=== PATIENT | female | born 1985 | race Caucasian/White ===

== ENCOUNTER 2024-05-23 10:11 | Observation (INO) ==
[2024-05-23] MEDS ORDERED: ONDANSETRON HCL/PF 4 MG/2 ML VIAL ONE (10:24)
[2024-05-23] MEDS ORDERED: KETOROLAC 30 MG/ML INJ VIAL ONE (10:24)
--- NOTE | 2024-05-23 10:25 | Emergency Department Note ---
HPI - General Adult General Chief complaint: Back Pain/Injury Stated complaint: KIDNEY STONES Time Seen by Provider: 05/23/24 10:22 Source: patient Source information: patient Mode of arrival: walk-in Limitations: no limitations History of Present Illness HPI narrative: This is a 38 year old female patient that presents to the Er with c/o left flank pain with N/V since this morning. Patient states she has a hx of kidney stones. Patient denies any chest pain, SOB, abdominal pain, fever, chills or diarrhea. Patient denies any painful urination or blood in urine Onset (ago): hour(s) (2) Location: Reports back (left flank) Radiation: Reports non-radiation Pain Consistency: Reports constant Relieving factors: Reports none Exacerbating factors: Reports none Associated symptoms: Reports denies other symptoms Treatments prior to arrival: Reports none Related Data Allergies Allergy/AdvReac Type Severity Reaction Status Date / Time azithromycin (From Zithromax) Allergy Verified 05/23/24 10:18 moxifloxacin (From Avelox) Allergy Verified 05/23/24 10:18 Review of Systems Status of ROS 10 or more systems reviewed and unremark able except as noted in history and below Constitutional Denies: fever, chills, change in weight, fatigue, malaise or night sweats Eyes Denies: change in vision, blurry vision, blind spots, light sensitivity, eye discomfort or eye discharge Ears, nose, mouth, and throat Denies: throat pain, neck pain, throat swelling, difficulty swallowing, hoarseness or mouth pain Cardiovascular Denies: chest pain, palpitations, edema, swelling of feet/ankles, lightheadedness or shortness of breath with exertion Respiratory Denies: shortness of breath, cough, wheezing, stridor or pain on i nspiration Gastrointestinal Reports: nausea and vomiting; Denies: abdominal pain, coffee grounds in vomit, heartburn, diarrhea or constipation Genitourinary Denies: painful urination, urinary frequency, urinary urgency, urinary incontinence, blood in urine or difficulty voiding Musculoskeletal Reports: back pain (left flank); Denies: neck pain, extremity pain, extremity swelling, joint pain, limited range of motion or joint swelling Integumentary/Breast Denies: rash, itching, redness, skin pain, skin tenderness, skin swelling, sores or new lesion Neurological Denies: headache, numbness in extremities, weakness in extremities, lack of coordination or dizziness Psychiatric Denies: anxiety, mood swings, panic attacks, change in sleep pattern, hopelessness, loss of interest or irritability Endocrine Denies: excessive urination, excessive thirst, fatigue, cold intolerance, excessive sweating, flushing or heat intolerance Hematologic/Lymphatic Denies: easy bruising, easy bleeding or enlarged lymph nodes Allergic/Immunologic Denies: hives, throat swelling, tongue swelling or facial swelling PFSH PFSH Medical History (Updated 05/23/24 @ 10:21 by Annemarie Aquino, RN) GERD (gastroesophageal reflux disease) Hypertension Surgical History (Updated 05/23/24 @ 10:21 by Annemarie Aquino, RN) History of tonsillectomy Exam Constitutional: normal general appearance and no apparent distress Vital Signs - 24 hr 05/23/24 10:15 Temperature 97.8 F Pulse Rate 94 H Respiratory Rate 18 Blood Pressure 133/75 Pulse Oximetry 100 Oxygen Delivery Me thod Room Air HENMT: normocephalic, head/scalp atraumatic and hearing grossly normal bilaterally Eyes: PERRL, EOMs intact bilaterally, conjunctivae normal and no scleral icterus Neck/C-Spine: visual inspection normal and trachea midline Lymph: no lymphadenopathy noted Chest: inspection of chest normal Respiratory: breath sounds equal bilaterally, normal respiratory effort, clear to auscultation bilaterally, no wheezes, no rales, no retractions and no use of accessory muscles Cardiovascular: normal heart rate noted, regular rhythm noted, no gallop, no rub, no murmur, no JVD, no clicks, peripheral pulses 2+ throughout and no additional abnormal heart sounds Gastrointestinal: abdomen normal to inspection, abdomen soft to palpation, nontender to palpation, nontender to percussion, nondistended, normoactive bowel sounds, no hepatosplenomegaly, no masses, no pulsatile mass, no ascites and no hernia Genitourinary: CVA tenderness noted (left CVA tenderness) Back/Pelvis: spine normal to inspection Extremities: normal to inspection, normal to palpation, no tenderness, full ROM, no joint enlargement and no deformity Neurology: no movement abnormality noted, gait normal, no fasciculations noted and GCS normal Psychiatry: mental status grossly normal, oriented x3, thought process normal, cooperative, affect normal, psychomotor activity normal and memory normal Skin: skin color normal Course Course Hospital Course: 1131: spoke to Dr Rangel (urology) reviewed labs and imaging with him and he stated he will see patient in his office Sunday morning and if she needs to be admitted here for pain control he can be consulted on her if the hospitalist needed him. No s/s of acute distress noted 1211: patient states her pain is coming back, will admit patient to the hospital for pain control and hydration. VSS. No s/s of acute distress noted Vital Signs Vital signs: Vital Signs Temperature 97.8 F 05/23/24 10:15 Pulse Rate 94 H 05/23/24 10:15 Respiratory Rate 18 05/23/24 10:15 Blood Pressure 133/75 05/23/24 10:15 Pulse Oximetry 100 05/23/24 10:15 Oxygen Delivery Method Room Air 05/23/24 10:15 Temperature 97.8 F 05/23/24 10:15 Pulse Rate 94 H 05/23/24 10:15 Respiratory Rate 18 05/23/24 10:15 Blood Pressure 133/75 05/23/24 10:15 Pulse Oximetry 100 05/23/24 10:15 Oxygen Delivery Method Room Air 05/23/24 10:15 Medical Decision Making Differential Diagnosis Differential Diagnosis: muscle strain Medical Records Medical records reviewed: Yes I reviewed the patient's medical records Lab Data Lab results reviewed: Yes I reviewed the patient's lab results Labs: Lab Results 05/23/24 05/23/24 Range/Units 09:23 10:30 WBC 7.4 (4.3-9.3) K/uL RBC 4.4 (4.00-5.50) M/uL Hgb 12.5 (12.5-15.8) gm/dL Hct 37.3 (35.9-46.7) % MCV 84.8 (81.0-93.7) fl MCH 28.3 (27.6-32.2) pg MCHC 33.4 (33.1-35.3) g/dl RDW 13.9 (11.4-14.2) % Plt Count 358 H (152-353) K/uL MPV 6.6 L (6.9-10.8) fl Gran % 55.7 (47.8-71.3) % Lymph % (Auto) 36.7 (20.0-43.0) % [place] % (Auto) 5.6 (3.6-9.8) % Eos % (Auto) 1.6 (0.4-2.8) % Baso % (Auto) 0.4 (0.1-0.85) Lymph # (Auto) 2.7 (1.1-3.1) [place] # (Auto) 0.4 L (1.1-3.1) Eos # (Auto) 0.1 (0.0-0.2) Baso # (Auto) 0.0 (0.0-0.1) Absolute Gran (auto) 4.1 (2.3-6.0) Sodium 139 (136-145) mmol/L Potassium 3.7 (3.6-5.2) mmol/L Chloride 103.0 (98-107) mmol/L Carbon Dioxide 25 (21-32) mmol/L Anion Gap 11.0 (4-14) mEq/L BUN 12 (7-18) mg/dL Creatinine 0.7 (0.6-1.3) mg/dL Estimated GFR 112.1 (>59.9) Glucose 131 H (70-110) mg/dL Calcium 9.3 (8.5-10.1) mg/dL Total Bilirubin 0.38 (0.0-1.0) mg/dL AST 17 (15-37) U/L ALT 34 (30-65) U/L Alkaline Phosphatase 118 (50-136) U/L Total Protein 7.7 (6.4-8.2) g/dL Albumin 3.8 (3.4-5.0) g/dL Urine Color Yellow (STRAW/YELL.) Urine Appearance Clear (CLEAR) Ur Specific [place] 1.030 (1.001-1.035) Urine Protein Negative (NEGATIVE) Urine Glucose (UA) Normal (NORMAL) Urine Ketones Negative (NEGATIVE) Urine Occult Blood 3+ (NEG - TRACE) Urine Nitrite Negative (NEGATIVE) Urine Bilirubin Negative (NEGATIVE) Urine Urobilinogen Normal (NORMAL) Ur Leukocyte Esterase Negative (NEGATIVE) Urine RBC 10 - 25 (0 - 5) Urine WBC Negative ( 0 - 5) Ur Epithelial Cells Few (Few/HPF) Amorphous Sediment Negative (Negative) Urine Bacteria Few (Negative) Urine Mucus Negative (Negative) Urine Trichomonas Negative (Negative) Urine Yeast Negative (Negative) Urine Test Negative (Negative) Fluid pH 6.0 (5 - 9) Imaging Data CT scan - abdomen: Attestation: I have reviewed the pertinent imaging results. Discharge Plan Discharge Patient Disposition: Admitted As Observation Condition: Stable Clinical Impression: Kidney stone, Acute flank pain, Nausea & vomiting Time of Disposition: 12:11
[2024-05-23] MEDS: ONDANSETRON HCL/PF 4 MG/2 ML VIAL INJ STA ×2 (10:30→11:28)
[2024-05-23] MEDS: KETOROLAC 30 MG/ML INJ VIAL IVP ONE (10:30)
[2024-05-23 10:37] LABS: Basophils%(Percent) Auto 0.4 (0.1-0.85); Eosinophils#(Absolute)Auto 0.1 (0.0-0.2); Eosinophils%(Percent) Auto 1.6 % (0.4-2.8); Granulocytes % - Auto 55.7 % (47.8-71.3); Granulocytes#(Absolute)- Auto 4.1 (2.3-6.0); Hematocrit 37.3 % (35.9-46.7); Mean Corpuscular Volume 84.8 fl (81.0-93.7); Monocytes #(Absolute)- Auto 0.4 (1.1-3.1); Monocytes %(Percent)- Auto 5.6 % (3.6-9.8); Platelet Count 358 K/uL (152-353); White Blood Count 7.4 K/uL (4.3-9.3)
[2024-05-23 10:47] LABS: Potassium 3.7 mmol/L (3.6-5.2)
[2024-05-23 11:02] LABS: Urine Appearance CLEAR (CLEAR); Urine Color YELLOW (STRAW/YELL.)
[2024-05-23 11:03] LABS: Urine Blood 3+ (NEG - TRACE); Urine Urobilinogen Normal (NORMAL)
[2024-05-23 11:07] LABS: Urine Amorphous Sediment Negative (Negative); Urine Yeast Negative (Negative)
[2024-05-23] MEDS: TAMSULOSIN HCL 0.4 MG CAPSULE PO ONE (11:27)
[2024-05-23] MEDS: MORPHINE SULFATE 4 MG/ML CARTRIDGE IVP ONE (11:29)
[2024-05-23] MEDS ORDERED: bisacodyL 10 MG SUPP.RECT PR PRN (15:00)
[2024-05-23] MEDS ORDERED: ACETAMINOPHEN 500 MG TABLET PO PRN (15:00)
[2024-05-23] MEDS ORDERED: ONDANSETRON HCL/PF 4 MG/2 ML VIAL INJ PRN (15:00)
[2024-05-23] MEDS: 0.9 % SODIUM CHLORIDE 1000 ML 1,000 ML IV SCH (15:27)
[2024-05-23] MEDS: KETOROLAC 30 MG/ML INJ VIAL IVP PRN (15:28)
[2024-05-23] MEDS: ONDANSETRON HCL/PF 4 MG/2 ML VIAL INJ PRN (16:01)
[2024-05-23] MEDS: MORPHINE SULFATE 4 MG/ML CARTRIDGE IV PRN (17:11)
[2024-05-23] MEDS: METOCLOPRAMIDE HCL 10 MG in 0.9 % SODIUM CHLORIDE 50 ML IVP PRN (17:11)
[2024-05-24 04:01] VITALS: RESP 18
[2024-05-24 05:35] LABS: Basophils%(Percent) Auto 0.2 (0.1-0.85); Eosinophils%(Percent) Auto 0.6 % (0.4-2.8); Granulocytes % - Auto 68.2 % (47.8-71.3); Granulocytes#(Absolute)- Auto 6.1 (2.3-6.0); Hematocrit 32.8 % (35.9-46.7); Mean Corpuscular Volume 84.7 fl (81.0-93.7); Monocytes #(Absolute)- Auto 0.7 (1.1-3.1); Monocytes %(Percent)- Auto 7.5 % (3.6-9.8); Platelet Count 273 K/uL (152-353); White Blood Count 8.9 K/uL (4.3-9.3)
[2024-05-24 06:03] LABS: Potassium 3.8 mmol/L (3.6-5.2)
[2024-05-24 09:11] VITALS: BP 114/65; PULSE 78; TEMP 97.6
--- NOTE | 2024-05-24 09:38 | Short Stay Summary ---
H&P: HPI History of Present Illness Chief complaint: KIDNEY STONE, FLANK PAIN, N/V Narrative: This is a 38-year-old white female patient who presented to the ER on 05/23/2024 (yesterday) for complaints of sudden onset left flank pain with nausea and vomiting. Reports known history of kidney stones and believed that to be the cause of her sudden onset of pain. She was evaluated in the ER and found to have a 6 mm stone left kidney with hydroureteronephrosis. Dr. Gorman (Urologist) was consulted and stated he would see patient in office on Sunday morning, however, if needed for pain control she could be admitted and he could be consulted by Hospitalist for any additional needs during hospital stay. She was admitted to the med-surg floor for IV hydration, antiemetics, and pain control. Her hospital stay has remained uneventful. Her pain has improved, her nausea and vomiting has resolved and she is tolerating meals now. She denies any pain currently and requesting discharge home. She does not wish to see Dr. Gorman and instead would like to be referred to another urologist. Will contact Dr. Recinos on Sunday and plan for close outpatient follow-up. Review of Systems Status of ROS 10 or more systems reviewed and unremark able except as noted in history and below Constitutional Denies: fever, chills, change in weight, fatigue, malaise or night sweats Eyes Denies: change in vision, blurry vision, blind spots, light sensitivity, eye discomfort or eye discharge Ears, nose, mouth, and throat Denies: throat pain, neck pain, throat swelling, difficulty swallowing, hoarseness or mouth pain Cardiovascular Denies: chest pain, palpitations, edema, swelling of feet/ankles, lightheadedness or shortness of breath with exertion Respiratory Denies: shortness of breath, cough, wheezing, stridor or pain on inspiration Gastrointestinal Denies: abdominal pain, nausea, vomiting, coffee grounds in vomit, heartburn, diarrhea, constipation or difficulty swallowing Genitourinary Denies: painful urination, urinary frequency, urinary urgency, urinary incontinence, blood in urine or difficulty voiding Musculoskeletal Denies: back pain (left flank), neck pain, extremity pain, extremity swelling, joint pain, limited range of motion or joint swelling Integumentary/Breast Denies: rash, itching, redness, skin pain, skin tenderness, skin swelling, sores or new lesion Neurological Denies: headache, numbness in extremities, weakness in extremities, lack of coordination or dizziness Psychiatric Denies: anxiety, mood swings, panic attacks, change in sleep pattern, hopelessness, loss of interest or irritability Endocrine Denies: excessive urination, excessive thirst, fatigue, cold intolerance, excessive sweating, flushing or heat intolerance Hematologic/Lymphatic Denies: easy bruising, easy bleeding or enlarged lymph nodes Allergic/Immunologic Denies: hives, throat swelling, tongue swelling, facial swelling or wheezing PFSH [facility] Medical History (Updated 05/24/24 @ 10:27 by Debora Romero NP) GERD (gastroesophageal reflux disease) Hypertension Surgical History History of tonsillectomy Social History Problems where you live: no known problems Highest level of school completed/degree received: [employer] Meds Home Medications and Allergies Home Medications Medication Instructions Recorded Confirmed Type lisinopril 20 mg tablet 20 mg PO DAILY 05/23/24 05/23/24 History omeprazole magnesium PO DAILY 05/23/24 History ketorolac 10 mg tablet 10 mg PO Q8H PRN pain #20 tabs 05/24/24 Rx ondansetron 4 mg disintegrating 4 mg PO Q8H PRN nausea and 05/24/24 Rx tablet vomiting #20 tabs tamsulosin 0.4 mg capsule (Flomax) 0.4 mg PO DAILY kidney stone #30 05/24/24 Rx caps tramadol 50 mg tablet 50 mg PO BID PRN pain #20 tabs 05/24/24 Rx Allergies Allergy/AdvReac Type Severity Reaction Status Date / Time azithromycin (From Zithromax) Allergy Verified 05/23/24 10:18 moxifloxacin (From Avelox) Allergy Verified 05/23/24 10:18 Exam Constitutional: normal general appearance, no apparent distress, average body habitus, no limitations and alert Vital Signs - 24 hr 05/23/24 10:15 05/23/24 11:30 05/23/24 12:00 Temperature 97.8 F Pulse Rate 94 H 80 86 Pulse Rate [Left] Respiratory Rate 18 18 18 Blood Pressure 133/75 127/82 122/76 Blood Pressure [Ri ght Arm] Pulse Oximetry 100 100 99 Oxygen Delivery Me thod Room Air Room Air Room Air 05/23/24 12:30 05/23/24 13:00 05/23/24 13:08 Temperature Pulse Rate 96 H 90 Pulse Rate [Left] Respiratory Rate 18 18 16 Blood Pressure 125/78 120/75 Blood Pressure [Ri ght Arm] Pulse Oximetry 98 99 Oxygen Delivery Me thod Room Air Room Air 05/23/24 13:15 05/23/24 13:48 05/23/24 23:41 Temperature 97.8 F 98.5 F 97.8 F Pulse Rate 90 Pulse Rate [Left] 92 H Respiratory Rate 18 19 17 Blood Pressure 120/75 Blood Pressure [Ri ght Arm] 119/66 Pulse Oximetry 99 98 Oxygen Delivery Me thod Room Air 05/24/24 04:00 Temperature 98.0 F Pulse Rate Pulse Rate [Left] 87 Respiratory Rate 18 Blood Pressure Blood Pressure [Ri ght Arm] 114/72 Pulse Oximetry 98 Oxygen Delivery Me thod Room Air HENMT: normocephalic, head/scalp atraumatic and hearing grossly normal bilaterally Eyes: PERRL, EOMs intact bilaterally, conjunctivae normal and no scleral icterus Neck/C-Spine: visual inspection normal, trachea midline, cervical full ROM noted and supple Lymph: no lymphadenopathy noted Chest: inspection of chest normal Respiratory: breath sounds equal bilaterally, normal respiratory effort, clear to auscultation bilaterally, no wheezes, no rales, no retractions and no use of accessory muscles Cardiovascular: normal heart rate noted, regular rhythm noted, no gallop, no rub, no murmur, no JVD, no clicks, peripheral pulses 2+ throughout and no addit ional abnormal heart sounds Gastrointestinal: abdomen normal to inspection, abdomen soft to palpation, nontender to palpation, nontender to percussion, nondistended, normoactive bowel sounds, no masses, no pulsatile mass and no ascites Genitourinary: no CVA tenderness (left CVA tenderness) and bladder normal to palpation Back/Pelvis: spine normal to inspection, no thoracic spine tenderness and no lumbar spine tenderness Extremities: normal to inspection, normal to palpation, no tenderness, full ROM, no joint enlargement and no deformity Neurology: no movement abnormality noted, gait normal, no fasciculations noted and GCS normal Psychiatry: mental status grossly normal, oriented x3, thought process normal, cooperative, affect normal, psychomotor activity normal and memory normal Skin: skin color normal, no rash, no wounds, skin turgor normal and no jaundice Assessment and Plan Assessment and Plan (1) Hydroureteronephrosis: Assessment and Plan: 6 mm obstructing calculus in the proximal left ureter with mild upstream hydroureteronephrosis IV hydration with normal saline at 100 cc an hour Flomax 0.4 mg daily Pain control with Toradol 30 mg IV every 6 hours as needed Morphine 4 mg IV every 6 hours as needed Encouraged oral fluid intake Urologist consult for close follow-up at discharge patient requesting Dr. Recinos in [place] Patient will be discharged home to continue with Flomax daily Discharge pain medication tramadol 50 mg p.o. 2 times daily as needed for pain and Toradol 10 mg p.o. 3 times daily as needed for pain. Reviewed red flag symptoms that should prompt immediate return or call for re-evaluation- worsening symptoms- fever, intractable nausea vomiting, Inability to void, worsening or change in pain Code(s): N13.30 - Unspecified hydronephrosis (2) Kidney stone on left side: Assessment and Plan: 6 mm obstructing calculus in the proximal left ureter with mild upstream hydroureteronephrosis IV hydration with normal saline at 100 cc an hour Flomax 0.4 mg daily Pain control with Toradol 30 mg IV every 6 hours as needed Morphine 4 mg IV every 6 hours as needed Encouraged oral fluid intake Urologist consult for close follow-up at discharge patient requesting Dr. Recinos in [place] Patient will be discharged home to continue with Flomax daily Discharge pain medication tramadol 50 mg p.o. 2 times daily as needed for pain and Toradol 10 mg p.o. 3 times daily as needed for pain. Reviewed red flag symptoms that should prompt immediate return or call for re-evaluation- worsening symptoms-fever, intractable nausea vomiting, Inability to void, worsening or change in pain Code(s): N20.0 - Calculus of kidney (3) Hydronephrosis with obstructing calculus: Assessment and Plan: 6 mm obstructing calculus in the proximal left ureter with mild upstream hydroureteronephrosis IV hydration with normal saline at 100 cc an hour Flomax 0.4 mg daily Pain control with Toradol 30 mg IV every 6 hours as needed Morphine 4 mg IV every 6 hours as needed Encouraged oral fluid intake Urologist consult for close follow-up at discharge patient requesting Dr. Recinos in [place] Patient will be discharged home to continue with Flomax daily Discharge pain medication tramadol 50 mg p.o. 2 times daily as needed for pain and Toradol 10 mg p.o. 3 times daily as needed for pain. Reviewed red flag symptoms that should prompt immediate return or call for re-evaluation- worsening symptoms-fever, intractable nausea vomiting, Inability to void, worsening or change in pain Code(s): N13.2 - Hydronephrosis with renal and ureteral calculous obstruction (4) Acute left flank pain: Assessment and Plan: 6 mm obstructing calculus in the proximal left ureter with mild upstream hydroureteronephrosis IV hydration with normal saline at 100 cc an hour Flomax 0.4 mg daily Pain control with Toradol 30 mg IV every 6 hours as needed Morphine 4 mg IV every 6 hours as needed Encouraged oral fluid intake Pain has resolved at time of discharge. Urologist consult for close follow-up at discharge patient requesting Dr. Recinos in [place] Patient will be discharged home to continue with Flomax daily Discharge pain medication tramadol 50 mg p.o. 2 times daily as needed for pain and Toradol 10 mg p.o. 3 times daily as needed for pain. Reviewed red flag symptoms that should prompt immediate return or call for re-evaluation- worsening symptoms- fever, intractable nausea vomiting, Inability to void, worsening or change in pain Code(s): R10.9 - Unspecified abdominal pain (5) Hypertension: Assessment and Plan: Vital signs per protocol Continue home medication lisinopril 20 mg p.o. daily Qualifiers: Hypertension type: unspecified Qualified Code(s): I10 - Essential (primary) hypertension Code(s): I10 - Essential (primary) hypertension (6) GERD (gastroesophageal reflux disease): Assessment and Plan: Continue home medication of omeprazole daily Managed well with current regiment. Continue to monitor diet. Qualifiers: Esophagitis presence: without esophagitis Qualified Code(s): K21.9 - Gastro-esophageal reflux disease without esophagitis Code(s): K21.9 - Gastro-esophageal reflux disease without esophagitis (7) Nausea & vomiting: Assessment and Plan: IV hydration with normal saline at 100 cc an mabel Zofran 4 mg IV every 4 as needed nausea/ vomiting Metoclopramide 10 mg IV every 8 hours as needed for nausea/ vomiting Resolved at time of discharge Patient is tolerating food and fluids without nausea and vomiting. Patient will be discharged home with Zofran 4 mg every 6-8 hours as needed for nausea. Code(s): R11.2 - Nausea with vomiting, unspecified Plan Patient will be discharged home with close follow-up with urologist hopefully the beginning of next week. Will contact Dr. Recinos's office on Sunday. She will be discharged home with pain medication as well as medications for nausea to take as directed and as needed to manage symptoms. We did review with her to return immediately to the nearest ER or here for any new/worsening/worrisome symptoms i.e. fever, intractable nausea vomiting, Inability to void, worsening or change in pain. Results Labs Labs: CBC WBC 8.9 K/uL (4.3-9.3) 05/24/24 05:25 RBC 3.9 M/uL (4.00-5.50) L 05/24/24 05:25 Hgb 11.2 gm/dL (12.5-15.8) L 05/24/24 05:25 Hct 32.8 % (35.9-46.7) L 05/24/24 05:25 MCV 84.7 fl (81.0-93.7) 05/24/24 05:25 MCH 28.8 pg (27.6-32.2) 05/24/24 05:25 MCHC 34.1 g/dl (33.1-35.3) 05/24/24 05:25 RDW 13.9 % (11.4-14.2) 05/24/24 05:25 Plt Count 273 K/uL (152-353) 05/24/24 05:25 MPV 6.6 fl (6.9-10.8) L 05/24/24 05:25 Gran % 68.2 % (47.8-71.3) 05/24/24 05:25 Lymph % (Auto) 23.5 % (20.0-43.0) 05/24/24 05:25 [place] % (Auto) 7.5 % (3.6-9.8) 05/24/24 05:25 Eos % (Auto) 0.6 % (0.4-2.8) 05/24/24 05:25 Baso % (Auto) 0.2 (0.1-0.85) 05/24/24 05:25 Lymph # (Auto) 2.1 (1.1-3.1) 05/24/24 05:25 [place] # (Auto) 0.7 (1.1-3.1) L 05/24/24 05:25 Eos # (Auto) 0.0 (0.0-0.2) 05/24/24 05:25 Baso # (Auto) 0.0 (0.0-0.1) 05/24/24 05:25 Absolute Gran (auto) 6.1 (2.3-6.0) H 05/24/24 05:25 BMP Sodium 141 mmol/L (136-145) 05/24/24 05:25 Potassium 3.8 mmol/L (3.6-5.2) 05/24/24 05:25 Chloride 107.0 mmol/L (98-107) 05/24/24 05:25 Carbon Dioxide 28 mmol/L (21-32) 05/24/24 05:25 Anion Gap 6.0 mEq/L (4-14) 05/24/24 05:25 BUN 15 mg/dL (7-18) 05/24/24 05:25 Creatinine 0.6 mg/dL (0.6-1.3) 05/24/24 05:25 Estimated GFR 116.3 (>59.9) 05/24/24 05:25 Glucose 105 mg/dL (70-110) 05/24/24 05:25 Calcium 8.6 mg/dL (8.5-10.1) 05/24/24 05:25 Total Bilirubin 0.52 mg/dL (0.0-1.0) 05/24/24 05:25 AST 13 U/L (15-37) L 05/24/24 05:25 ALT 26 U/L (30-65) L 05/24/24 05:25 Alkaline Phosphatase 99 U/L (50-136) 05/24/24 05:25 Total Protein 6.5 g/dL (6.4-8.2) 05/24/24 05:25 Albumin 3.2 g/dL (3.4-5.0) L 05/24/24 05:25 Liver Function Total Bilirubin 0.52 mg/dL (0.0-1.0) 05/24/24 05:25 AST 13 U/L (15-37) L 05/24/24 05:25 ALT 26 U/L (30-65) L 05/24/24 05:25 Alkaline Phosphatase 99 U/L (50-136) 05/24/24 05:25 Total Protein 6.5 g/dL (6.4-8.2) 05/24/24 05:25 Albumin 3.2 g/dL (3.4-5.0) L 05/24/24 05:25 Urine Urine Color Yellow (STRAW/YELL.) 05/23/24 09:23 Urine Appearance Clear (CLEAR) 05/23/24 09:23 Ur Specific [place] 1.030 (1.001-1.035) 05/23/24 09:23 Urine Protein Negative (NEGATIVE) 05/23/24 09:23 Urine Glucose (UA) Normal (NORMAL) 05/23/24 09:23 Urine Ketones Negative (NEGATIVE) 05/23/24 09:23 Urine Occult Blood 3+ (NEG - TRACE) 05/23/24 09:23 Urine Nitrite Negative (NEGATIVE) 05/23/24 09:23 Urine Bilirubin Negative (NEGATIVE) 05/23/24 09:23 Urine Urobilinogen Normal (NORMAL) 05/23/24 09:23 Ur Leukocyte Esterase Negative (NEGATIVE) 05/23/24 09:23 Pulse Oximetry SpO2 results: 98 % RA Attestation: I have reviewed the pertinent pulse oximetry results. Imaging Imaging ordered: CT scan - abdomen Attestation: I have reviewed the pertinent imaging results. Radiologist's impression: EXAM: CT ABDOMEN PELVIS WO CON HISTORY: LEFT SIDED FLANK PAIN X 2 HOURS; CV/AB COMPARISON: No relevant prior studies were available for comparison at the time of interpretation.. TECHNIQUE: CT images were obtained. Multiplanar reconstructions were created on a separate workstation and used during interpretation. All CT scans at this facility is dose modulation, iterative reconstruction, and/or weight-based dosing as appropriate to reduce radiation to levels as low as reasonably achievable (ALARA). Postprocessing details, radiation dose, and contrast dose (if applicable) are recorded in the patient's medical record. FINDINGS: Lower chest: Lung bases are clear. No acute cardiac abnormality. ABDOMEN: Liver: Normal size and contour. No suspicious masses. No biliary dilation. Gallbladder: No evidence of acute cholecystitis. Pancreas: No mass or ductal dilation. Spleen: Normal morphology. Adrenal glands: No suspicious mass. No hemorrhage. Kidneys: Normal-size, location, and morphology. There is a 6 mm calculus in the proximal left ureter with mild upstream hydroureteronephrosis. No other nephrolithiasis is seen. No obstructive nephropathy on the right Upper GI: Normal caliber and wall thickness Small bowel: No evidence of high-grade obstruction Large bowel: Normal caliber and wall thickness Appendix: Not seen but no secondary signs of acute appendicitis. Peritoneum: No free air or significant free fluid Lymph nodes: No enlarged abdominal lymph nodes. Vasculature: No significant vascular abnormality. PELVIS: Bladder: Bladder is intact and unremarkable. Reproductive System: No acute reproductive organ abnormality. EXTRAPERITONEAL TISSUES: Abdominal wall: No acute abnormality Musculoskeletal: No acute osseous abnormality. No destructive bony lesion. Other soft tissues: Unremarkable IMPRESSION: 1. 6 mm obstructing calculus in the proximal left ureter with mild upstream hydroureteronephrosis THIS IS AN ELECTRONICALLY VERIFIED FINAL REPORT 05/23/2024 11:15 AM - Electronically signed by Randy Salinas MD DS: Providers Provider Date of admission: 05/23/24 12:44 Primary care physician: Juan Carlos Cadena Admitting clinician: Shanthi Chacon Attending physician on admission: Shanthi Chacon Attending physician on discharge: Shanthi Chacon Discharging clinician: Debora Romero Anticipated date of discharge: 05/24/24 DS: Summary Hospital Course Hospital Course: She was admitted to the floor for IV hydration,Antiemetics and pain control. Her hospital remained uneventful. Her pain improved, her nausea and vomiting resolved and she is tolerating meals and oral fluids. She denies any pain on today's assessment and requested discharge home. She does not wish to see Dr. Gorman and instead would like to be referred to another urologist. Will contact Dr. Recinos on Sunday and plan for close outpatient follow-up. Status at Discharge Cognitive/behavioral status at discharge: Alert and oriented Functional status at discharge: independent ambulation Overall status at discharge: patient is back to baseline Time Spent with Patient Time attestation: Total time spent providing and/or coordinating discharge services: Time spent: greater than 30 minutes Discharge Plan Discharge Disposition: Home, Self-Care Condition: Stable Discharge Medications: New tramadol 50 mg tablet 50 mg PO BID PRN (Reason: pain) Qty: 20 0RF ketorolac 10 mg tablet 10 mg PO Q8H PRN (Reason: pain) Qty: 20 0RF Rx Instructions: maximum total duration of 5 days from all oral, intranasal, or parenteral formulations ondansetron 4 mg tablet,disintegrating 4 mg PO Q8H PRN (Reason: nausea and vomiting) Qty: 20 0RF tamsulosin [Flomax] 0.4 mg capsule 0.4 mg PO DAILY Qty: 30 0RF Continued lisinopril 20 mg tablet 20 mg PO DAILY Patient Comments: TAKE ONE TABLET BY MOUTH ONCE DAILY omeprazole magnesium PO DAILY Discharge Orders: Discharge Order (Routine); Ordered 05/24/24 Ordered By: Debora Romero Activity: resume usual activities as tolerated Diet: advance to your usual diet Interventions: MED/SURG & ICU Observation Charge Sheet Last Done: 05/24/24 06:18 Plan of Treatment: Urology referral Symptomatic management- Take pain medication and medication for nausea as directed and as needed. Encourage fluids to maintain hydration. Continue home medications as directed Follow-up with PCP-call on Sunday and schedule follow-up appointment for hospital discharge follow-up Patient Instructions: Kidney Stones (DC), How to Strain Your Urine (ED), Flank Pain (ED), Hydronephrosis (DC) Activity Restrictions/Additional Instructions: RESUME HOME MEDICATIONS DIRECTED PRIOR TO ADMISSION FOLLOW-UP WITH PRIMARY DOCTOR AND DR. GORMAN START NEW MEDICATIONS DIRECTED RETURN TO ER IF WORSENING OR PAIN NOT CONTROLLED. Forms: Portal/Health Info Access Inst Follow-Ups: Juan Carlos Cadena [Primary Care Provider] -
== END 2024-05-24 11:04 | disposition home or self-care (01) ==
LOC: ED 10:11 → MS 10:11
PROVIDERS: ADMIT Family Medicine; ATTEND Family Medicine